=== PATIENT | male | born 1980 ===

== ENCOUNTER 2020-01-23 14:34 | Outpatient (CLI) | payer BC, SELFPAY ==
--- NOTE | 2020-01-23 06:00 | DI.RAD_ITS ---
EXAM: XR PAIN CLINIC LUMBAR SP 2V CLINICAL HISTORY: Dx:Lumbar Radiculopathy. TECHNIQUE: Fluoroscopy was provided for the referring physician for guidance with performing injecti on procedure. COMPARISON: No exams were available for comparison FINDINGS: Please see procedure note for details. Fluoro time: 37.8 s, 8.14 mGy RADIATION DOSE DELIVERED:
[2020-01-23 14:45] VITALS: BP 114/77; PULSE 83; RESP 16; TEMP 36.6; O2SAT 98
[2020-01-23] MEDS: Omnipaque 240 MG/ML 50 ML BTL IJ (15:17)
[2020-01-23] MEDS: methylPREDNISolone ACETATE 80 MG/ML VIAL IJ (15:17)
[2020-01-23 15:19] VITALS: BP 124/71; PULSE 99; RESP 18
--- NOTE | 2020-01-23 15:36 | PDOC.PAIN ---
Pain Clinic Procedure Note Procedure Note Procedure Note: Lumbar Epidural Steroid Injection Procedure Note COMMENTS: Pain from the low back into the right anterior thigh. I did review his recent lumbar spine MRI and his evaluation with Ms. Guerrero in our clinic. DX: Lumbosacral radiculopathy MATT JOHNSON has been referred to the [facility] for lumbar epidural steroid injection. The patient was greeted by the nurse who verified patients name and . Patient was then taken to the fluoroscopy suite. The patient was interviewed and the medial record reviewed. There were no medical, pharmacologic, radiographic, or other structural contraindications to attempting fluoroscopically guided lumbar epidural steroid injection. Risks and expected side effects as well as potential benefits of the procedure were reviewed and voiced concerns expressed. The patient consent form was signed and witnessed. Standard patient time-out procedure was performed. The patient was placed in the prone position on the fluoroscopy table and automated blood pressure cuff and pulse oximeter applied. The skin entry point for entering/approaching the epidural space at L3-L4 and marked. Following thorough chlorhexadine preparation of the skin and draping and 1% lidocaine infiltration of the skin entry point and subcutaneous tissues, a 18 gauge Touhy needle was placed under fluoroscopic guidance and with loss of resistance technique into the epidural space. Needle tip placement and depth were aided and confirmed by fluoroscopy. There was no paresthesia or return of blood or CSF through the needle. 1 cc's of Omnipaque 240 was injected with clear epidural spread confirmed with fluoroscopy. 80mg depomedrol was injected. There was not any unusual discomfort expressed by MATT JOHNSON. Patient's vital signs were stable throughout the procedure and were as recorded in nursing records. Follow up plans and appointments were discussed with patient. Post procedure instruction was given as documented in nursing records and having met discharge criteria and was discharged from the [facility]. COMMENTS: If this procedure is helpful, it can be completed up to 3 times per 12 months. Sam Nguyen DO, MPH Attending physician Pain Management
== END 2020-01-23 14:54 ==
PROVIDERS: Visit Provider Preventive Medicine Occupational Medicine
DX: M54.17 Radiculopathy, lumbosacral region (principal)
CPT/HCPCS: 62323; 72100; J1040; Q9967